=== PATIENT | male | born 1965 | race Caucasian/White ===

== ENCOUNTER 2025-01-02 12:34 | Inpatient (IN) ==
[2025-01-02 13:25] LABS: Basophils #(Absolute) Auto 0.0 (0.0-0.1); Basophils%(Percent) Auto 0.2 (0.0-1.3); Eosinophils#(Absolute)Auto 0.0 (0.0-0.3); Eosinophils%(Percent) Auto 0.2 % (0.0-4.0); Granulocytes % - Auto 82.7 % (49.1-73.1); Granulocytes#(Absolute)- Auto 9.1 (2.0-6.2); Hematocrit 53.8 % (41.3-50.1); Mean Corpuscular Volume 89.7 fl (81.9-96.5); Monocytes #(Absolute)- Auto 1.1 (0.2-0.8); Monocytes %(Percent)- Auto 10.0 % (4.5-10.7); Platelet Count 343 K/uL (142-355); White Blood Count 10.9 K/uL (3.7-9.6)
[2025-01-02] MEDS: 0.9 % SODIUM CHLORIDE 1000 ML 1,000 ML IV ONE ×4 (13:33→16:52)
[2025-01-02 13:36] LABS: Carbon Dioxide 20.0 mmol/L (21-32); Glucose 227.0 mg/dL (70-110); Potassium 4.5 mmol/L (3.6-5.2); Sodium 130.0 mmol/L (136-145)
[2025-01-02 14:07] LABS: PH BODY FLUID EXCP BLOOD 6.0 (5 - 9)
[2025-01-02] MEDS ORDERED: VANCOMYCIN HCL 1,000 MG in 0.9 % SODIUM CHLORIDE 250 ML IV SCH (15:15)
[2025-01-02] MEDS: PIPERACILLIN/TAZOBACTAM 3.375 3.375 GM in 0.9 % SODIUM CHLORIDE MB+ 100 ML IV ONE (15:16)
[2025-01-02] MEDS ORDERED: PIPERACILLIN SODIUM/TAZOBACTAM 3.375 GM VIAL IV ONE (15:16)
[2025-01-02] MEDS ORDERED: 0.9 % SODIUM CHLORIDE MB+ 100 ML IV ONE (15:16)
[2025-01-02] MEDS ORDERED: 0.9 % SODIUM CHLORIDE 1000 ML 1,000 ML IV ONE (16:45)
[2025-01-02] MEDS ORDERED: 0.9 % SODIUM CHLORIDE 250 ML IV ONE ×2 (17:05→18:58)
[2025-01-02] MEDS ORDERED: VANCOMYCIN HCL 1,000 MG VIAL IV ONE (17:05)
[2025-01-02] MEDS ORDERED: AZITHROMYCIN 500 MG VIAL ONE (18:58)
[2025-01-02] MEDS: AZITHROMYCIN 500 MG 500 MG in 0.9 % SODIUM CHLORIDE 250 ML IV ONE (18:59)
--- NOTE | 2025-01-02 20:22 | Emergency Department Note ---
HPI - Altered Mental Status General Chief Complaint: Altered Mental Status Stated Complaint: AMS Time Seen by Provider: 01/02/25 12:36 Source: family, medical record, EMS and other (nursing staff) Source comment: not sure what is unanswered Mode of arrival: ambulance Limitations: altered mental status History of Present Illness HPI narrative: 59-year-old male patient presents conscious however confused. states that this has been going on for the past 2 days. States that she noticed it yesterday after patient came home from having a liver biopsy. Patient has metastatic lung cancer and has been seen in the ER 3 times in the past week 4 times in the past month. states that the patient is deteriorating quickly. States that he has had gurgling respirations for the past 2 days that is worse in normal with his lung cancer.Son states that this is the third time the patient has had lung cancer MD complaint: altered mental status, confusion and weakness Onset (ago): day(s) (2) Time: 08:00 (on 01/01/25) Timing confirmed by: spouse Severity: mild Consistency of symptoms: getting Worse Context: cancer and liver disease Associated symptoms: denies other symptoms Related Data Home Medications Medication Instructions Recorded Confirmed aspirin 81 mg tablet,delayed 81 mg PO DAILY 01/02/25 0 01/02/25 release calcium phosphate,dibasic 77 1 tab PO DAILY 01/02/25 0 01/02/25 mg-vitamin D3 400 unit tablet celecoxib 400 mg capsule 400 mg PO DAILY 01/02/25 doxazosin 8 mg tablet 8 mg PO DAILY 01/02/2501/02 empagliflozin 25 mg tablet 25 mg PO DAILY 01/02/25 (Jardiance) ferrous sulfate 325 mg (65 mg 325 mg PO DAILY 01/02/25 01/02/25 iron) tablet (FeroSul) folic acid 1 mg tablet 1 mg PO DAILY 01/02/2501/02 furosemide 20 mg tablet 20 mg PO Q12H 01/02/2501/02 gabapentin 400 mg capsule 800 mg PO TID 01/02/2501/02 metformin 1,000 mg tablet 1,000 mg PO BID 01/02/25 metformin 500 mg tablet 500 mg PO DAILY 01/02/25 methocarbamol 750 mg tablet 750 mg PO BID 01/02/25 pilocarpine HCl 5 mg tablet 5 mg PO TID 01/02/2501/02 potassium chloride 10 mEq 10 meq PO DAILY 01/02/25 tablet,extended release quetiapine 25 mg tablet 50 mg PO BEDTIME 01/02/25 ropinirole 4 mg tablet 4 mg PO BID 01/02/25 5 simvastatin 20 mg tablet 20 mg PO BEDTIME 01/02/25 spironolactone 25 mg tablet 25 mg PO TID 01/02/2512/07 thiamine HCl (vitamin B1) 100 mg 100 mg PO DAILY 01/0201/02/25 capsule Previous Rx's Medication Instructions Recorded magnesium citrate 150 ml PO DAILY PRN constipa tion 12/31/24 #296 mL Allergies Allergy/AdvReac Type Severity Reaction Status Date / Time No Known Drug Allergies Allergy Verified 01/02/25 12:46 Review of Systems Status of ROS 10 or more systems reviewed and unremark able except as noted in history and below Cardiovascular Reports: other (tachycardia) Respiratory Reports: shortness of breath, cough and other (rales) [facility] Medical History (Updated 01/04/25 @ 13:51 by Lev Tan NP) Tachycardia Atrial fibrillation BPH (benign prostatic hyperplasia) Spinal cord stimulator status Port-A-Cath in place COPD (chronic obstructive pulmonary disease) Diabetes Hx of cancer of lung HTN (hypertension) Surgical History History of prostate surgery History of total right hip replacement History of total left hip arthroplasty H/O cardiac radiofrequency ablation Social History Smoking status: never smoker Within the past year, how often did you have six or more drinks on one occasion: never Highest level of school completed/degree received: decline to answer Exam Constitutional: abnormal general appearance (chronically ill), distress noted (moderate) and average body habitus Vital Signs - 24 hr 01/02/25 12:34 01/02/25 12:35 01/02/25 13:00 Temperature 97.6 F Pulse Rate 64 100 H Respiratory Rate 20 18 Blood Pressure 135/88 138/75 Pulse Oximetry 97 91 L 93 L Oxygen Delivery Me thod Nasal Cannula Room Air Nasal Cannula Oxygen Flow Rate 2 2 01/02/25 13:30 01/02/25 14:00 01/02/25 14:30 Temperature Pulse Rate 109 H 105 H 101 H Respiratory Rate 36 H 34 H 31 H Blood Pressure 102/75 116/78 106/77 Pulse Oximetry 97 97 95 Oxygen Delivery Me thod Nasal Cannula Nasal Cannula Nasal Cannula Oxygen Flow Rate 2 2 2 01/02/25 15:30 01/02/25 16:01 01/02/25 16:30 Temperature Pulse Rate 93 H 96 H 95 H Respiratory Rate 25 H 25 H 25 H Blood Pressure 97/69 135/78 130/80 Pulse Oximetry 95 95 95 Oxygen Delivery Me thod Nasal Cannula Nasal Cannula Nasal Cannula Oxygen Flow Rate 4 4 4 01/02/25 17:00 01/02/25 17:30 01/02/25 18:00 Temperature Pulse Rate 97 H 95 H 93 H Respiratory Rate 25 H 25 H 25 H Blood Pressure 114/71 114/66 111/61 Pulse Oximetry 95 95 95 Oxygen Delivery Me thod Nasal Cannula Nasal Cannula Nasal Cannula Oxygen Flow Rate 4 4 4 01/02/25 18:31 01/02/25 19:00 Temperature Pulse Rate 92 H 93 H Respiratory Rate 25 H 25 H Blood Pressure 96/57 108/66 Pulse Oximetry 95 95 Oxygen Delivery Me thod Nasal Cannula Nasal Cannula Oxygen Flow Rate 4 4 HENMT: normocephalic and head/scalp atraumatic Eyes: PERRL and EOMs intact bilaterally Neck/C-Spine: visual inspection normal and trachea midline Lymph: no lymphadenopathy noted and no lymphedema noted Chest: inspection of chest normal and palpation of chest normal Respiratory: breath sounds equal bilaterally (rhonchi bilaterally), abnormal respiratory effort other (increased work of breathing), auscultation abnormal other (rales) and rales noted (base) Cardiovascular: heart rate abnormal (tachycardic) and regular rhythm noted Neurology: GCS calculation - Eye opening: Spontaneous Verbal response: Confused Motor response: Obey commands Kwasi Coma Scale total score: 14 Skin: skin color normal Course Course Hospital Course: Patient was evaluated in the ER found to be in mild acute distress. Breath so unds are rhonchi bilaterally. Patient afebrile during evaluation. Patient is tachycardic and tachypneic. Patient's blood pressure slightly decreased. Patient has been seen in the ER 3 times in the past week 4 times in the past month. Patient appears to be declining rapidly. Nursing staff states that they saw him on his last visit and that this is a mental status. does state that this has been going on for the past 2 days progressively getting worse. States the patient does not want to eat or drink as he normally should. Head CT shows no acute findings. Patient is confused and is not following all commands however when he does follow commands he is able to move all extremities without any deficits. Patient appears to have equal bilateral heel compressor. No drift or droop is noted. WBC is slightly elevated at 10.1 however lactic acid is 4.0. Patient was given normal saline 2 L IV. Fluid bolus of 30 cc/KG Was 2700 cc however patient is responding nicely after 2 L. Patient's BMP comes back elevated greater than 500. Patient was continued on normal saline at 150ml/hour. Patient was given vancomycin 1g IV and zosyn 3.375g as no initial source of infection was found. CT chest ab and pelvis was done that shows pneumonia. I have consulted Dr Peter Davila, attending, in regards to further treatment as patient has had two broad spectrum antibiotics. Pt was also given azithromycin 500mg IV and will continue on IV rocephine 1 g and IV azithromycine 500mg daily. I have discussed with And she will present the desire to admit patient for further evaluation and treatment of pneumonia And sepsis. They are all in agreement. I further discussed with the and children any advanced directives. At this time patient will remain a full code. Vital Signs Vital signs: Vital Signs Pulse Oximetry 97 01/02/25 12:34 Oxygen Delivery Method Nasal Cannula 01/02/25 12:34 Oxygen Flow Rate 2 01/02/25 12:34 Temperature 98.3 F 01/05/25 04:00 Pulse Rate 101 H 01/05/25 04:00 Respiratory Rate 20 01/05/25 04:00 Blood Pressure 135/83 01/05/25 04:00 Pulse Oximetry 93 L 01/05/25 04:00 Oxygen Delivery Method Nasal Cannula 01/05/25 04:00 Oxygen Flow Rate 2.5 01/05/25 04:00 Fraction of Inspired Oxygen 32 01/04/25 20:47 MDM - Altered Mental Status Differential Diagnosis Differential diagnosis: Likely altered mental status, delirium, hypoglycemia, hyponatremia, subarachnoid hemorrhage, sepsis and OTHER (pneumonia) Medical Records Attestation: I reviewed the patient's medical records. Lab Data Attestation: I reviewed the patient's lab results. Labs: Lab Results 01/02/25 01/02/25 01/02/25 Range/Units 12:45 13:00 13:53 WBC 10.9 H (3.7-9.6) K/uL RBC 6.0 H (4.40-5.80) M/uL Hgb 17.8 H (14.0-17.4) gm/dL Hct 53.8 H (41.3-50.1) % MCV 89.7 (81.9-96.5) fl MCH 29.7 (27.6-33.7) pg MCHC 33.1 (33.0-35.7) g/dl RDW 16.5 H (11.0-14.8) % Plt Count 343 (142-355) K/uL MPV 8.4 (6.0-10.4) fl Gran % 82.7 H (49.1-73.1) % Lymph % (Auto) 6.9 L (17.6-39.05) % Esmeralda % (Auto) 10.0 (4.5-10.7) % Eos % (Auto) 0.2 (0.0-4.0) % Baso % (Auto) 0.2 (0.0-1.3) Lymph # (Auto) 0.8 (0.8-2.9) Esmeralda # (Auto) 1.1 H (0.2-0.8) Eos # (Auto) 0.0 (0.0-0.3) Baso # (Auto) 0.0 (0.0-0.1) Absolute Gran (auto) 9.1 H (2.0-6.2) Sodium 130 L (136-145) mmol/L Potassium 4.5 (3.6-5.2) mmol/L Chloride 94.0 L (98-107) mmol/L Carbon Dioxide 20 L (21-32) mmol/L Anion Gap 16.0 H (4-14) mEq/L BUN 41 H (7-18) mg/dL Creatinine 1.3 (0.6-1.3) mg/dL Estimated GFR 62.5 (>59.9) Glucose 227 H (70-110) mg/dL Lactic Acid 4.0 H (0.27-1.43) mmol/L Calcium 14.6 H* (8.5-10.1) mg/dL Magnesium 2.3 (1.8-2.4) mg/dL Total Bilirubin 1.00 (0.0-1.0) mg/dL AST 74 H (15-37) U/L ALT 37 (30-65) U/L Alkaline Phosphatase 184 H (50-136) U/L B-Natriuretic Peptide (0-100) pg/mL Total Protein 7.8 (6.4-8.2) g/dL Albumin 2.2 L (3.4-5.0) g/dL Procalcitonin TNP Urine Color Yellow (STRAW/YELL.) Urine Appearance Clear (CLEAR) Ur Specific [place] 1.025 (1.001-1.035) Urine Protein Negative (NEGATIVE) Urine Glucose (UA) Trace (NORMAL) Urine Ketones Small (NEGATIVE) Urine Occult Blood Negative (NEG - TRACE) Urine Nitrite Negative (NEGATIVE) Urine Bilirubin Negative (NEGATIVE) Urine Urobilinogen Normal (NORMAL) Ur Leukocyte Esterase Negative (NEGATIVE) Fluid pH 6.0 (5 - 9) COVID-19 (DANA) Not detected (Not Detectd) Influenza Type A Ag Negative (Negative) Influenza Type B Ag Negative (Negative) 01/02/25 01/02/25 Range/Units 15:34 20:05 WBC (3.7-9.6) K/uL RBC (4.40-5.80) M/uL Hgb (14.0-17.4) gm/dL Hct (41.3-50.1) % MCV (81.9-96.5) fl MCH (27.6-33.7) pg MCHC (33.0-35.7) g/dl RDW (11.0-14.8) % Plt Count (142-355) K/uL MPV (6.0-10.4) fl Gran % (49.1-73.1) % Lymph % (Auto) (17.6-39.05) % Esmeralda % (Auto) (4.5-10.7) % Eos % (Auto) (0.0-4.0) % Baso % (Auto) (0.0-1.3) Lymph # (Auto) (0.8-2.9) Esmeralda # (Auto) (0.2-0.8) Eos # (Auto) (0.0-0.3) Baso # (Auto) (0.0-0.1) Absolute Gran (auto) (2.0-6.2) Sodium (136-145) mmol/L Potassium (3.6-5.2) mmol/L Chloride (98-107) mmol/L Carbon Dioxide (21-32) mmol/L Anion Gap (4-14) mEq/L BUN (7-18) mg/dL Creatinine (0.6-1.3) mg/dL Estimated GFR (>59.9) Glucose (70-110) mg/dL Lactic Acid 2.5 H (0.27-1.43) mmol/L Calcium (8.5-10.1) mg/dL Magnesium (1.8-2.4) mg/dL Total Bilirubin (0.0-1.0) mg/dL AST (15-37) U/L ALT (30-65) U/L Alkaline Phosphatase (50-136) U/L B-Natriuretic Peptide 507.0 H (0-100) pg/mL Total Protein (6.4-8.2) g/dL Albumin (3.4-5.0) g/dL Procalcitonin Urine Color (STRAW/YELL.) Urine Appearance (CLEAR) Ur Specific [place] (1.001-1.035) Urine Protein (NEGATIVE) Urine Glucose (UA) (NORMAL) Urine Ketones (NEGATIVE) Urine Occult Blood (NEG - TRACE) Urine Nitrite (NEGATIVE) Urine Bilirubin (NEGATIVE) Urine Urobilinogen (NORMAL) Ur Leukocyte Esterase (NEGATIVE) Fluid pH (5 - 9) COVID-19 (DANA) (Not Detectd) Influenza Type A Ag (Negative) Influenza Type B Ag (Negative) ABG Data Attestation: I have reviewed the pertinent ABG results. Imaging Data Imaging ordered: Chest x-ray, CT scan - abdomen, CT scan - chest and CT scan - pelvis Radiologist's impression: Patient: July Trejo Nico Patient: José Antonio Benites MR#: [id number] : 1965 Acct:[id number] Age/Sex: 59 / M ADM Date: 01/02/25 Loc: ED Attending Dr: Ordering Physician: Pablito Ahumada NP Date of Service: 01/02/25 Procedure(s): CT Chest/Abd/Pelvis w Accession Number(s): [id number] cc: Pablito Ahumada NP; Melissa Youngblood M.D.~ EXAM: CT CHEST/ABD/PELVIS W HISTORY: Sepsis COMPARISON: CT of the abdomen and pelvis December 27, 2024 TECHNIQUE: CT of the chest, abdomen and pelvis with intravenous contrast FINDINGS: CT chest: The thoracic aorta tapers normally with multifocal atherosclerotic calcifications. Coronary atherosclerotic calcifications are noted. No pericardial effusion. No mediastinal lymphadenopathy. Lung windows demonstrate bilateral emphysematous change. There is a central venous port present on the right. There is left upper lobe lung mass spanning 3.6 cm with metallic density suggesting treatment marker. There is airspace opacity in the left upper lobe with air bronchograms consistent with focal pneumonia. There is an 8 mm noncalcified nodule in the lateral left lower lobe worrisome for metastatic focus. There is a dorsal column stimulator present. CT abdomen and pelvis: The abdominal aorta tapers normally with extensive, multifocal atherosclerotic plaque. Some motion artifact reduces sensitivity. No liver mass. Stones are present in the gallbladder which does not appear inflamed. 2 cm right adrenal nodule. 2.7 cm left adrenal nodule. These adrenal nodules are nonspecific. 5 mm nonobstructing right nephrolithiasis. No left renal stones. The distal ureters and pelvis are obscured secondary to severe metallic streak artifact from bilateral metallic hip arthroplasties. Normal spleen contours. The pancreas is noninflamed. The stomach is not obstructed. The normal appendix is noted. No pelvic free fluid. The small bowel is not obstructed. No free air. There is a fracture of the L3 vertebral body which is similar to the recent comparison study without reaching retropulsion. There is lucency in the T8 vertebral body which is suspicious for possible metastatic activity. IMPRESSION: CT chest: Left upper lobe lung mass spanning 3.6 cm worrisome for lung malignancy. Left upper lobe pneumonia. 8 mm noncalcified nodule lateral left lower lobe worrisome for metastatic focus. CT abdomen and pelvis: Cholelithiasis. Bilateral adrenal nodules are nonspecific and metastatic nodularity can not be excluded. 5 mm nonobstructing right nephrolithiasis. Suspicious appearance of the T8 vertebral body possibly metastatic in etiology. All CT scans at this facility use dose modulation, iterative reconstruction, and/or weight based dosing when appropriate to reduce radiation dose to as low as reasonably achievable. THIS IS AN ELECTRONICALLY VERIFIED FINAL REPORT 01/02/2025 5:53 PM - Electronically signed by Ronal Augustin MD ECG Data Attestation: I have reviewed the pertinent ECG results. Critical Care Time Critical Care Time Critical Care Time: Yes Total Critical Care Time: 60 Attestation: Critical care time of 60 minutes Discharge Plan Discharge Patient Disposition: Admitted As Observation Condition: Improved Clinical Impression: Sepsis, Pneumonia, Hypercalcemia Interventions: ED Discharge Assessment Last Done: 01/02/25 20:55 ED Discharge Vital Sign Last Done: 01/02/25 20:56 Emergency Department Charge Sheet Last Done: 01/02/25 20:59 Time of Disposition: 20:13 Discharge Date/Time: 01/02/25 21:30
[2025-01-02] MEDS ORDERED: MAGNESIUM CITRATE 296 ML SOLUTION PO PRN (21:38)
[2025-01-02] MEDS: QUETIAPINE FUMARATE 25 MG TABLET PO SCH (22:04)
[2025-01-02] MEDS: METHOCARBAMOL 750 MG PO SCH (22:04)
[2025-01-02] MEDS: ROPINIROLE HCL 2 MG TABLET PO SCH (22:04)
[2025-01-02] MEDS: GABAPENTIN 400 MG CAPSULE PO SCH (22:04)
[2025-01-02] MEDS: SIMVASTATIN 10 MG TABLET PO SCH (22:04)
[2025-01-02] MEDS: METFORMIN HCL 500 MG TABLET PO SCH (22:04)
[2025-01-02] MEDS: PILOCARPINE HCL 5 MG PO SCH (22:05)
[2025-01-02] MEDS: 0.9 % SODIUM CHLORIDE 1000 ML 1,000 ML IV SCH (22:31)
[2025-01-02] MEDS ORDERED: KETOROLAC 30 MG/ML INJ VIAL IVP PRN (22:36)
[2025-01-02] MEDS: MORPHINE SULFATE 4 MG/ML CARTRIDGE IVP PRN (22:59)
[2025-01-02] MEDS: ONDANSETRON HCL/PF 4 MG/2 ML VIAL IVP PRN (22:59)
[2025-01-03] MEDS: ACETAMINOPHEN 1000 MG/100 ML 1,000 MG/100 ML IV.SOLN IV PRN (04:14)
[2025-01-03 05:32] LABS: Basophils #(Absolute) Auto 0.0 (0.0-0.1); Basophils%(Percent) Auto 0.2 (0.0-1.3); Eosinophils#(Absolute)Auto 0.0 (0.0-0.3); Eosinophils%(Percent) Auto 0.3 % (0.0-4.0); Granulocytes % - Auto 83.3 % (49.1-73.1); Granulocytes#(Absolute)- Auto 7.6 (2.0-6.2); Hematocrit 44.3 % (41.3-50.1); Mean Corpuscular Volume 89.3 fl (81.9-96.5); Monocytes #(Absolute)- Auto 1.0 (0.2-0.8); Monocytes %(Percent)- Auto 10.5 % (4.5-10.7); Platelet Count 286 K/uL (142-355); White Blood Count 9.1 K/uL (3.7-9.6)
[2025-01-03 06:10] LABS: Carbon Dioxide 24.0 mmol/L (21-32); Glucose 115.0 mg/dL (70-110); Potassium 3.8 mmol/L (3.6-5.2); Sodium 138.0 mmol/L (136-145)
[2025-01-03] MEDS: ASPIRIN 81 MG TABLET.DR PO SCH (08:59)
[2025-01-03] MEDS: TERAZOSIN HCL 2 MG CAPSULE PO SCH (09:00)
[2025-01-03] MEDS: CALCIUM PHOS DIBAS VITAMIN D3 PO SCH (09:00)
[2025-01-03] MEDS: CELECOXIB 100 MG CAPSULE PO SCH (09:00)
[2025-01-03] MEDS: THIAMINE MONONITRATE (VIT B1) 100 MG TABLET PO SCH (09:00)
[2025-01-03] MEDS: CEFTRIAXONE SODIUM 1 GM in 0.9 % SODIUM CHLORIDE MB+ 50 ML IV SCH (09:01)
[2025-01-03] MEDS: AZITHROMYCIN 500 MG 500 MG in 0.9 % SODIUM CHLORIDE 250 ML IV SCH (09:01)
[2025-01-03] MEDS: ALBUMIN HUMAN 25% 100 ML IV SCH (09:53)
--- NOTE | 2025-01-03 13:25 | History & Physical Report ---
H&P: HPI History of Present Illness Chief complaint: SEPSIS,PNEUMONIA Narrative: Very ill appearing 59 year old male who was brought into the ED with c/o AMS x 2 days, gurgling lung sounds x 2 days. He is s/p liver biopsy in [place], [place] 2 days ago for mass detected on prior ED visit here. He has history significant for lung cancer reportedly for about 4 or 5 years for which he has been undergoing chemo and at times had radiation. Recently in November [address] Asael Wong, Oncologist in [place], [place] and chemo was stopped at that time due to him being so sick and having a "lot going on". Prior to this he was on [id number] Deruxtecan protocol. According to the patient'spouse he has been undergoing regular PET imaging. Those records are not available to us now. In ER lactic 4.0, Calcium 14.6, Albumin 2.2, Sodium 130, WBC 10.9, hgb 17.8, hct 53.8, and platelets 343. Today Albumin 1.8, Calcium 13.1, Lactic 2.5. Patient was given Vanc and Zosyn IV in ED and then admitted and switched to Azithromycin and Recephin IV. Chest CT positive for findings suspicious for mets in lung, liver, adrenal glands, and T8 vertebral body. The patient's spouse has been providing total care for him at home but states she is unable to continue now that he cannot stand on his own and requires round the clock care. She has missed work for the past couple weeks due to providing this care. She wishes to have him admitted to the [facility] for ongoing care as she works here and will be able to continue her job and know he is taken care of. I have discussed end of life care and advanced directives with her and one of their sons that I was able to reach by phone. Spouse asked me to talk to them. At this time they wish to continue full code status but are considering best options for patient. Review of Systems Narrative Patient did not express any complaints but given AMS unable to assess [facility] Medical History (Updated 01/03/25 @ 13:47 by Karina Boothe NP) BPH (benign prostatic hyperplasia) Spinal cord stimulator status Port-A-Cath in place COPD (chronic obstructive pulmonary disease) Diabetes Hx of cancer of lung HTN (hypertension) Surgical History History of prostate surgery History of total right hip replacement History of total left hip arthroplasty H/O cardiac radiofrequency ablation Social History Smoking status: former smoker Within the past year, how often did you have six or more drinks on one occasion: never Highest level of school completed/degree received: decline to answer Meds Home Medications and Allergies Home Medications Medication Instructions Recorded Confirmed Type magnesium citrate 150 ml PO DAILY PRN constipa tion 12/31/24 01/02/25 Rx #296 mL aspirin 81 mg tablet,delayed 81 mg PO DAILY 01/02/25 0 01/02/25 History release calcium phosphate,dibasic 77 1 tab PO DAILY 01/02/25 0 01/02/25 History mg-vitamin D3 400 unit tablet celecoxib 400 mg capsule 400 mg PO DAILY 01/02/25 History doxazosin 8 mg tablet 8 mg PO DAILY 01/02/2501/02 History empagliflozin 25 mg tablet 25 mg PO DAILY 01/02/25 History (Jardiance) ferrous sulfate 325 mg (65 mg 325 mg PO DAILY 01/02/25 01/02/25 History iron) tablet (FeroSul) folic acid 1 mg tablet 1 mg PO DAILY 01/02/2501/02 History furosemide 20 mg tablet 20 mg PO Q12H 01/02/2501/02 History gabapentin 400 mg capsule 800 mg PO TID 01/02/2501/02 History metformin 1,000 mg tablet 1,000 mg PO BID 01/02/25 History metformin 500 mg tablet 500 mg PO DAILY 01/02/25 History methocarbamol 750 mg tablet 750 mg PO BID 01/02/25 History pilocarpine HCl 5 mg tablet 5 mg PO TID 01/02/2501/02 History potassium chloride 10 mEq 10 meq PO DAILY 01/02/25 History tablet,extended release quetiapine 25 mg tablet 50 mg PO BEDTIME 01/02/25 History ropinirole 4 mg tablet 4 mg PO BID 01/02/25 5 History simvastatin 20 mg tablet 20 mg PO BEDTIME 01/02/25 History spironolactone 25 mg tablet 25 mg PO TID 01/02/2512/07 History thiamine HCl (vitamin B1) 100 mg 100 mg PO DAILY 01/0201/02/25 History capsule Allergies Allergy/AdvReac Type Severity Reaction Status Date / Time No Known Drug Allergies Allergy Verified 01/02/25 12:46 Exam Constitutional: normal general appearance (ill appearing), no apparent distress, average body habitus, no limitations (weak and unable to walk or stand) and alert (awake and fidgeting, AMS) Vital Signs - 24 hr 01/02/25 13:30 01/02/25 14:00 01/02/25 14:30 Temperature Pulse Rate 109 H 105 H 101 H Pulse Rate [Bilate ral Radial] Pulse Rate [Right] Respiratory Rate 36 H 34 H 31 H Blood Pressure 102/75 116/78 106/77 Blood Pressure [Ri ght Arm] Pulse Oximetry 97 97 95 Oxygen Delivery Me thod Nasal Cannula Nasal Cannula Nasal Cannula Oxygen Flow Rate 2 2 2 01/02/25 15:30 01/02/25 16:01 01/02/25 16:30 Temperature Pulse Rate 93 H 96 H 95 H Pulse Rate [Bilate ral Radial] Pulse Rate [Right] Respiratory Rate 25 H 25 H 25 H Blood Pressure 97/69 135/78 130/80 Blood Pressure [Ri ght Arm] Pulse Oximetry 95 95 95 Oxygen Delivery Me thod Nasal Cannula Nasal Cannula Nasal Cannula Oxygen Flow Rate 4 4 4 01/02/25 17:00 01/02/25 17:30 01/02/25 18:00 Temperature Pulse Rate 97 H 95 H 93 H Pulse Rate [Bilate ral Radial] Pulse Rate [Right] Respiratory Rate 25 H 25 H 25 H Blood Pressure 114/71 114/66 111/61 Blood Pressure [Ri ght Arm] Pulse Oximetry 95 95 95 Oxygen Delivery Me thod Nasal Cannula Nasal Cannula Nasal Cannula Oxygen Flow Rate 4 4 4 01/02/25 18:31 01/02/25 19:00 01/02/25 19:30 Temperature Pulse Rate 92 H 93 H 94 H Pulse Rate [Bilate ral Radial] Pulse Rate [Right] Respiratory Rate 25 H 25 H 18 Blood Pressure 96/57 108/66 100/61 Blood Pressure [Ri ght Arm] Pulse Oximetry 95 95 96 Oxygen Delivery Me thod Nasal Cannula Nasal Cannula Nasal Cannula Oxygen Flow Rate 4 4 4 01/02/25 20:00 01/02/25 20:19 01/02/25 20:30 Temperature Pulse Rate 95 H 97 H 94 H Pulse Rate [Bilate ral Radial] Pulse Rate [Right] Respiratory Rate 22 21 23 Blood Pressure 108/71 115/58 110/68 Blood Pressure [Ri ght Arm] Pulse Oximetry 96 93 L 95 Oxygen Delivery Me thod Nasal Cannula Nasal Cannula Nasal Cannula Oxygen Flow Rate 4 4 4 01/02/25 20:51 01/02/25 20:51 01/02/25 20:56 Temperature 98.9 F 97.6 F Pulse Rate 93 H Pulse Rate [Bilate ral Radial] Pulse Rate [Right] 97 H Respiratory Rate 23 23 25 H Blood Pressure 108/66 Blood Pressure [Ri ght Arm] 115/58 Pulse Oximetry 94 L 94 L 95 Oxygen Delivery Me thod Nasal Cannula Nasal Cannula Oxygen Flow Rate 4 4 01/02/25 21:00 01/03/25 00:00 01/03/25 04:00 Temperature 96.4 F L 96.8 F L Pulse Rate 94 H Pulse Rate [Bilate ral Radial] 97 H Pulse Rate [Right] 97 H 88 Respiratory Rate 23 22 21 Blood Pressure 104/77 Blood Pressure [Ri ght Arm] 116/79 119/68 Pulse Oximetry 95 94 L 97 Oxygen Delivery Me thod Nasal Cannula Room Air Nasal Cannula Oxygen Flow Rate 4 4 01/03/25 07:58 01/03/25 12:00 Temperature 98.2 F 98.3 F Pulse Rate Pulse Rate [Bilate ral Radial] Pulse Rate [Right] 68 73 Respiratory Rate 20 20 Blood Pressure Blood Pressure [Ri ght Arm] 143/80 155/89 Pulse Oximetry 95 91 L Oxygen Delivery Me thod Nasal Cannula Nasal Cannula Oxygen Flow Rate 4 4 HENMT: normocephalic and head/scalp atraumatic Eyes: conjunctivae normal, no scleral icterus and no nystagmus pupils not equal Neck/C-Spine: visual inspection normal and trachea midline Chest: inspection of chest normal Respiratory: breath sounds equal bilaterally (rhonchi BLL, crackles BLL), no retractions and no use of accessory muscles Cardiovascular: normal heart rate noted and regular rhythm noted Gastrointestinal: abdomen abnormal to inspection, abdomen soft to palpation, nontender to palpation, nontender to percussion, nondistended (dullness to percussion), normoactive bowel sounds and no ascites Dullness to percussion Genitourinary: deferred Back/Pelvis: spine normal to inspection Extremities: normal to inspection, normal to palpation, no tenderness, full ROM and no joint enlargement Neurology: no fasciculations noted AMS Psychiatry: AMS Skin: skin color normal (pallor, dusky) Assessment and Plan Assessment and Plan (1) AMS (altered mental status): Code(s): R41.82 - Altered mental status, unspecified (2) Lung mass: Code(s): R91.8 - Other nonspecific abnormal finding of lung field (3) Adrenal mass: Code(s): E27.8 - Other specified disorders of adrenal gland (4) Lactic acidosis: Code(s): E87.20 - Acidosis, unspecified (5) Hypercalcemia of malignancy: Code(s): E83.52 - Hypercalcemia (6) Hypoalbuminemia due to protein-calorie malnutrition: Code(s): E88.09 - Other disorders of plasma-protein metabolism, not elsewhere classified; E46 - Unspecified protein-calorie malnutrition (7) D-dimer, elevated: Code(s): R79.89 - Other specified abnormal findings of blood chemistry (8) HTN (hypertension): Code(s): I10 - Essential (primary) hypertension (9) Diabetes: Code(s): E11.9 - Type 2 diabetes mellitus without complications (10) COPD (chronic obstructive pulmonary disease): Code(s): J44.9 - Chronic obstructive pulmonary disease, unspecified (11) Port-A-Cath in place: Code(s): Z95.828 - Presence of other vascular implants and grafts (12) Spinal cord stimulator status: Code(s): Z96.89 - Presence of other specified functional implants Plan CTA for PE pending to rule out Pulmonary Embolism Replete Albumin IV fluid rehydration Azithromycin and Rocephin IV Case Management Consult for [facility] Placement Repeat CBC, CMP, Lactic acid in am. Pain control NPO to avoid aspiration, may have occasional ice chips to wet mucous membranes Continue Advanced Directive/End of Life Care communication with spouse, children. Results Labs Labs: CBC 01/02/25 01/03/25 Range/Units 13:00 05:20 WBC 10.9 H 9.1 (3.7-9.6) K/uL RBC 6.0 H 5.0 (4.40-5.80) M/uL Hgb 17.8 H 14.8 (14.0-17.4) gm/dL Hct 53.8 H 44.3 (41.3-50.1) % Plt Count 343 286 (142-355) K/uL Gran % 82.7 H 83.3 H (49.1-73.1) % Lymph % (Auto) 6.9 L 5.7 L (17.6-39.05) % [place] % (Auto) 10.0 10.5 (4.5-10.7) % Eos % (Auto) 0.2 0.3 (0.0-4.0) % Baso % (Auto) 0.2 0.2 (0.0-1.3) Lymph # (Auto) 0.8 0.5 L (0.8-2.9) [place] # (Auto) 1.1 H 1.0 H (0.2-0.8) Eos # (Auto) 0.0 0.0 (0.0-0.3) Baso # (Auto) 0.0 0.0 (0.0-0.1) Absolute Gran (auto) 9.1 H 7.6 H (2.0-6.2) CMP 01/02/25 01/03/25 12:45 05:20 Sodium 130 L 138 Potassium 4.5 3.8 Chloride 94.0 L 104.0 Carbon Dioxide 20 L 24 BUN 41 H 38 H Creatinine 1.3 1.2 Glucose 227 H 115 H Calcium 14.6 H* 13.1 H* Liver Function 01/02/25 01/03/25 Range/Units 12:45 05:20 Total Bilirubin 1.00 0.63 (0.0-1.0) mg/dL AST 74 H 83 H (15-37) U/L ALT 37 34 (30-65) U/L Alkaline Phosphatase 184 H 152 H (50-136) U/L Albumin 2.2 L 1.8 L (3.4-5.0) g/dL Urine 01/02/25 13:53 Urine Color Yellow Urine Appearance Clear Ur Specific [place] 1.025 Urine Protein Negative Urine Glucose (UA) Trace Additional Findings Additional findings: CTA for PE pending
--- NOTE | 2025-01-03 14:52 | History & Physical Report ---
H&P: HPI History of Present Illness Chief complaint: SEPSIS,PNEUMONIA Review of Systems Narrative Patient did not express any complaints but given AMS unable to assess Status of ROS 10 or more systems reviewed and unremark able except as noted in history and below Cardiovascular Reports: shortness of breath with exertion and other (tachycardia) Respiratory Reports: shortness of breath, cough and other (rales) PFSH PFS Medical History (Updated 01/03/25 @ 13:47 by Karina Boothe NP) BPH (benign prostatic hyperplasia) Spinal cord stimulator status Port-A-Cath in place COPD (chronic obstructive pulmonary disease) Diabetes Hx of cancer of lung HTN (hypertension) Surgical History History of prostate surgery History of total right hip replacement History of total left hip arthroplasty H/O cardiac radiofrequency ablation Social History Smoking status: former smoker Within the past year, how often did you have six or more drinks on one occasion: never Highest level of school completed/degree received: decline to answer Meds Home Medications and Allergies Home Medications Medication Instructions Recorded Confirmed Type magnesium citrate 150 ml PO DAILY PRN constipa tion 12/31/24 01/02/25 Rx #296 mL aspirin 81 mg tablet,delayed 81 mg PO DAILY 01/02/25 0 01/02/25 History release calcium phosphate,dibasic 77 1 tab PO DAILY 01/02/25 0 01/02/25 History mg-vitamin D3 400 unit tablet celecoxib 400 mg capsule 400 mg PO DAILY 01/02/25 History doxazosin 8 mg tablet 8 mg PO DAILY 01/02/2501/02 History empagliflozin 25 mg tablet 25 mg PO DAILY 01/02/25 History (Jardiance) ferrous sulfate 325 mg (65 mg 325 mg PO DAILY 01/02/25 01/02/25 History iron) tablet (FeroSul) folic acid 1 mg tablet 1 mg PO DAILY 01/02/2501/02 History furosemide 20 mg tablet 20 mg PO Q12H 01/02/2501/02 History gabapentin 400 mg capsule 800 mg PO TID 01/02/2501/02 History metformin 1,000 mg tablet 1,000 mg PO BID 01/02/25 History metformin 500 mg tablet 500 mg PO DAILY 01/02/25 History methocarbamol 750 mg tablet 750 mg PO BID 01/02/25 History pilocarpine HCl 5 mg tablet 5 mg PO TID 01/02/2501/02 History potassium chloride 10 mEq 10 meq PO DAILY 01/02/25 History tablet,extended release quetiapine 25 mg tablet 50 mg PO BEDTIME 01/02/25 History ropinirole 4 mg tablet 4 mg PO BID 01/02/25 5 History simvastatin 20 mg tablet 20 mg PO BEDTIME 01/02/25 History spironolactone 25 mg tablet 25 mg PO TID 01/02/2512/07 History thiamine HCl (vitamin B1) 100 mg 100 mg PO DAILY 01/0201/02/25 History capsule Allergies Allergy/AdvReac Type Severity Reaction Status Date / Time No Known Drug Allergies Allergy Verified 01/02/25 12:46 Exam Constitutional: Vital Signs - 24 hr 01/02/25 14:00 01/02/25 14:30 01/02/25 15:30 Temperature Pulse Rate 105 H 101 H 93 H Pulse Rate [Bilate ral Radial] Pulse Rate [Right] Respiratory Rate 34 H 31 H 25 H Blood Pressure 116/78 106/77 97/69 Blood Pressure [Ri ght Arm] Pulse Oximetry 97 95 95 Oxygen Delivery Me thod Nasal Cannula Nasal Cannula Nasal Cannula Oxygen Flow Rate 2 2 4 01/02/25 16:01 01/02/25 16:30 01/02/25 17:00 Temperature Pulse Rate 96 H 95 H 97 H Pulse Rate [Bilate ral Radial] Pulse Rate [Right] Respiratory Rate 25 H 25 H 25 H Blood Pressure 135/78 130/80 114/71 Blood Pressure [Ri ght Arm] Pulse Oximetry 95 95 95 Oxygen Delivery Me thod Nasal Cannula Nasal Cannula Nasal Cannula Oxygen Flow Rate 4 4 4 01/02/25 17:30 01/02/25 18:00 01/02/25 18:31 Temperature Pulse Rate 95 H 93 H 92 H Pulse Rate [Bilate ral Radial] Pulse Rate [Right] Respiratory Rate 25 H 25 H 25 H Blood Pressure 114/66 111/61 96/57 Blood Pressure [Ri ght Arm] Pulse Oximetry 95 95 95 Oxygen Delivery Me thod Nasal Cannula Nasal Cannula Nasal Cannula Oxygen Flow Rate 4 4 4 01/02/25 19:00 01/02/25 19:30 01/02/25 20:00 Temperature Pulse Rate 93 H 94 H 95 H Pulse Rate [Bilate ral Radial] Pulse Rate [Right] Respiratory Rate 25 H 18 22 Blood Pressure 108/66 100/61 108/71 Blood Pressure [Ri ght Arm] Pulse Oximetry 95 96 96 Oxygen Delivery Me thod Nasal Cannula Nasal Cannula Nasal Cannula Oxygen Flow Rate 4 4 4 01/02/25 20:19 01/02/25 20:30 01/02/25 20:51 Temperature Pulse Rate 97 H 94 H Pulse Rate [Bilate ral Radial] Pulse Rate [Right] Respiratory Rate 21 23 23 Blood Pressure 115/58 110/68 Blood Pressure [Ri ght Arm] Pulse Oximetry 93 L 95 94 L Oxygen Delivery Me thod Nasal Cannula Nasal Cannula Nasal Cannula Oxygen Flow Rate 4 4 4 01/02/25 20:51 01/02/25 20:56 01/02/25 21:00 Temperature 98.9 F 97.6 F Pulse Rate 93 H 94 H Pulse Rate [Bilate ral Radial] Pulse Rate [Right] 97 H Respiratory Rate 23 25 H 23 Blood Pressure 108/66 104/77 Blood Pressure [Ri ght Arm] 115/58 Pulse Oximetry 94 L 95 95 Oxygen Delivery Me thod Nasal Cannula Nasal Cannula Oxygen Flow Rate 4 4 01/03/25 00:00 01/03/25 04:00 01/03/25 07:58 Temperature 96.4 F L 96.8 F L 98.2 F Pulse Rate Pulse Rate [Bilate ral Radial] 97 H Pulse Rate [Right] 97 H 88 68 Respiratory Rate 22 21 20 Blood Pressure Blood Pressure [Ri ght Arm] 116/79 119/68 143/80 Pulse Oximetry 94 L 97 95 Oxygen Delivery Me thod Room Air Nasal Cannula Nasal Cannula Oxygen Flow Rate 4 4 01/03/25 12:00 Temperature 98.3 F Pulse Rate Pulse Rate [Bilate ral Radial] Pulse Rate [Right] 73 Respiratory Rate 20 Blood Pressure Blood Pressure [Ri ght Arm] 155/89 Pulse Oximetry 91 L Oxygen Delivery Me thod Nasal Cannula Oxygen Flow Rate 4 Assessment and Plan Assessment and Plan (1) AMS (altered mental status): Code(s): R41.82 - Altered mental status, unspecified (2) Lung mass: Code(s): R91.8 - Other nonspecific abnormal finding of lung field (3) Adrenal mass: Code(s): E27.8 - Other specified disorders of adrenal gland (4) Lactic acidosis: Code(s): E87.20 - Acidosis, unspecified (5) Hypercalcemia of malignancy: Code(s): E83.52 - Hypercalcemia (6) Hypoalbuminemia due to protein-calorie malnutrition: Code(s): E88.09 - Other disorders of plasma-protein metabolism, not elsewhere classified; E46 - Unspecified protein-calorie malnutrition (7) D-dimer, elevated: Code(s): R79.89 - Other specified abnormal findings of blood chemistry (8) HTN (hypertension): Code(s): I10 - Essential (primary) hypertension (9) Diabetes: Code(s): E11.9 - Type 2 diabetes mellitus without complications (10) COPD (chronic obstructive pulmonary disease): Code(s): J44.9 - Chronic obstructive pulmonary disease, unspecified (11) Port-A-Cath in place: Code(s): Z95.828 - Presence of other vascular implants and grafts (12) Spinal cord stimulator status: Code(s): Z96.89 - Presence of other specified functional implants Plan CTA for PE pending to rule out Pulmonary Embolism Replete Albumin IV fluid rehydration Azithromycin and Rocephin IV Case Management Consult for [facility] Placement Repeat CBC, CMP, Lactic acid in am. Pain control NPO to avoid aspiration, may have occasional ice chips to wet mucous membranes Continue Advanced Directive/End of Life Care communication with spouse, children. Results Labs Labs: CBC 01/03/25 Range/Units 05:20 WBC 9.1 (3.7-9.6) K/uL RBC 5.0 (4.40-5.80) M/uL Hgb 14.8 (14.0-17.4) gm/dL Hct 44.3 (41.3-50.1) % Plt Count 286 (142-355) K/uL Gran % 83.3 H (49.1-73.1) % Lymph % (Auto) 5.7 L (17.6-39.05) % [place] % (Auto) 10.5 (4.5-10.7) % Eos % (Auto) 0.3 (0.0-4.0) % Baso % (Auto) 0.2 (0.0-1.3) Lymph # (Auto) 0.5 L (0.8-2.9) [place] # (Auto) 1.0 H (0.2-0.8) Eos # (Auto) 0.0 (0.0-0.3) Baso # (Auto) 0.0 (0.0-0.1) Absolute Gran (auto) 7.6 H (2.0-6.2) CMP 01/02/25 01/03/25 12:45 05:20 Sodium 130 L 138 Potassium 4.5 3.8 Chloride 94.0 L 104.0 Carbon Dioxide 20 L 24 BUN 41 H 38 H Creatinine 1.3 1.2 Glucose 227 H 115 H Calcium 14.6 H* 13.1 H* Liver Function 01/02/25 01/03/25 Range/Units 12:45 05:20 Total Bilirubin 1.00 0.63 (0.0-1.0) mg/dL AST 74 H 83 H (15-37) U/L ALT 37 34 (30-65) U/L Alkaline Phosphatase 184 H 152 H (50-136) U/L Albumin 2.2 L 1.8 L (3.4-5.0) g/dL Urine 01/02/25 13:53 Urine Color Yellow Urine Appearance Clear Ur Specific [place] 1.025 Urine Protein Negative Urine Glucose (UA) Trace
[2025-01-03] MEDS: MORPHINE SULFATE 4 MG/ML CARTRIDGE IVP PRN (21:28)
[2025-01-03] MEDS: FUROSEMIDE 20 MG/2 ML VIAL IV ONE (23:19)
[2025-01-04 07:53] LABS: Basophils #(Absolute) Auto 0.0 (0.0-0.1); Basophils%(Percent) Auto 0.3 (0.0-1.3); Eosinophils#(Absolute)Auto 0.1 (0.0-0.3); Eosinophils%(Percent) Auto 0.6 % (0.0-4.0); Granulocytes % - Auto 84.7 % (49.1-73.1); Granulocytes#(Absolute)- Auto 8.5 (2.0-6.2); Hematocrit 49.4 % (41.3-50.1); Mean Corpuscular Volume 88.7 fl (81.9-96.5); Monocytes #(Absolute)- Auto 0.8 (0.2-0.8); Monocytes %(Percent)- Auto 8.3 % (4.5-10.7); Platelet Count 341 K/uL (142-355); White Blood Count 10.0 K/uL (3.7-9.6)
[2025-01-04 08:28] LABS: Carbon Dioxide 23.0 mmol/L (21-32); Glucose 99.0 mg/dL (70-110); Potassium 3.1 mmol/L (3.6-5.2); Sodium 145.0 mmol/L (136-145)
[2025-01-04] MEDS: METOPROLOL TARTRATE 50 MG TABLET PO SCH (09:58)
[2025-01-04] MEDS: IPRATROPIUM/ALBUTEROL SULFATE 3 ML AMPUL.NEB INH SCH (11:14)
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
[2025-01-04] MEDS: METHYLPREDNISOLONE SOD SUCC/PF 40 MG/ML VIAL INJ SCH ×2 (12:58→20:14)
[2025-01-04] MEDS: POTASSIUM CHLORIDE 10 MEQ CAPSULE.ER PO ONE (12:58)
[2025-01-04] MEDS: ZOLEDRONIC ACID/MANNITOL-WATER 5 MG/100 ML PGGYBK.BTL IV ONE (13:02)
[2025-01-04] MEDS: PILOCARPINE HCL 5 MG PO SCH (16:46)
[2025-01-04] MEDS: METHOCARBAMOL 750 MG PO SCH (20:15)
[2025-01-04] MEDS: BUDESONIDE 0.5 MG/2 ML AMPUL.NEB INH SCH (20:46)
[2025-01-05 04:43] LABS: Basophils #(Absolute) Auto 0.0 (0.0-0.1); Basophils%(Percent) Auto 0.3 (0.0-1.3); Eosinophils#(Absolute)Auto 0.0 (0.0-0.3); Eosinophils%(Percent) Auto 0.1 % (0.0-4.0); Granulocytes % - Auto 91.6 % (49.1-73.1); Granulocytes#(Absolute)- Auto 8.2 (2.0-6.2); Hematocrit 46.6 % (41.3-50.1); Mean Corpuscular Volume 89.7 fl (81.9-96.5); Monocytes #(Absolute)- Auto 0.4 (0.2-0.8); Monocytes %(Percent)- Auto 4.2 % (4.5-10.7); Platelet Count 336 K/uL (142-355); White Blood Count 8.9 K/uL (3.7-9.6)
[2025-01-05 05:14] LABS: Carbon Dioxide 27.0 mmol/L (21-32); Glucose 261.0 mg/dL (70-110); Potassium 4.4 mmol/L (3.6-5.2); Sodium 149.0 mmol/L (136-145)
[2025-01-05] MEDS: AZITHROMYCIN 500 MG 500 MG in 0.9 % SODIUM CHLORIDE 250 ML IV SCH (11:04)
--- NOTE | 2025-01-05 14:05 | Progress Note ---
Exam 2 Exam: Obtunded, responding only with moaning and brief eye opening with deep sternal rub. Restless with uncoordinated arm movements. Appears to be transitioning, end of life in his disease process. Constitutional: abnormal general appearance (chronically ill), distress noted (moderate) and (respiratory), average body habitus and level of alertness abnormal (obtunded) Vital Signs - 24 hr 01/04/25 15:05 01/04/25 16:00 01/04/25 19:46 Temperature 98 F 98.3 F Pulse Rate Pulse Rate [Bilate ral Brachial] 99 H 92 H Pulse Rate [Right] Respiratory Rate 21 20 Blood Pressure Blood Pressure [Ri ght Arm] 138/68 136/78 Pulse Oximetry 92 L 92 L 93 L Oxygen Delivery Me thod Nasal Cannula Oxygen Flow Rate 3 Fraction of Inspir ed Oxygen 01/04/25 20:13 01/04/25 20:47 01/04/25 20:47 Temperature Pulse Rate 92 H Pulse Rate [Bilate ral Brachial] Pulse Rate [Right] Respiratory Rate Blood Pressure 136/78 Blood Pressure [Ri ght Arm] Pulse Oximetry 91 L 91 L Oxygen Delivery Me thod Nasal Cannula Oxygen Flow Rate 3 Fraction of Inspir ed Oxygen 32 01/05/25 00:00 01/05/25 00:13 01/05/25 04:00 Temperature 98.4 F 98.4 F 98.3 F Pulse Rate Pulse Rate [Bilate ral Brachial] 86 86 101 H Pulse Rate [Right] 20 L Respiratory Rate 20 20 Blood Pressure Blood Pressure [Ri ght Arm] 118/70 118/70 135/83 Pulse Oximetry 93 L 93 L 93 L Oxygen Delivery Me thod Nasal Cannula Nasal Cannula Oxygen Flow Rate 2.5 2.5 Fraction of Inspir ed Oxygen 01/05/25 07:40 01/05/25 08:00 01/05/25 12:00 Temperature 97.1 F L 97.6 F Pulse Rate Pulse Rate [Bilate ral Brachial] 115 H Pulse Rate [Right] 133 H Respiratory Rate 20 16 Blood Pressure Blood Pressure [Ri ght Arm] 114/63 147/86 Pulse Oximetry 94 L 94 L 89 L Oxygen Delivery Me thod Nasal Cannula Nasal Cannula Oxygen Flow Rate 2.5 3 Fraction of Inspir ed Oxygen 01/05/25 12:04 01/05/25 12:26 Temperature Pulse Rate 130 H Pulse Rate [Bilate ral Brachial] Pulse Rate [Right] Respiratory Rate Blood Pressure Blood Pressure [Ri ght Arm] Pulse Oximetry 94 L Oxygen Delivery Me thod Oxygen Flow Rate Fraction of Inspir ed Oxygen HENMT: normocephalic, head/scalp atraumatic, external ears normal and oral mucous membranes abnormal (dry) Eyes: Deferred Neck/C-Spine: trachea midline Chest: inspection of chest normal and palpation of chest normal Respiratory: breath sounds unequal, abnormal respiratory effort (labored), auscultation abnormal, wheezing noted (scattered wheezes), rales noted (throughout) and use of accessory muscles noted Cardiovascular: heart rate abnormal (tachycardic), no JVD and peripheral pulses 2+ throughout Gastrointestinal: distended and ascites noted Genitourinary: Deferred Back/Pelvis: Deferred Extremities: normal to inspection and normal to palpation Neurology: movement abnormality noted (myoclonus), speech abnormality noted and GCS calculation - Eye opening: To pressure Verbal response: Sounds Motor response: None Kwasi Coma Scale total score: 5 Psychiatry: Mental Status Exam documented within this Exam's Psych section mental status abnormal (obtunded), orientation abnormal, thought process normal, cooperative and psychomotor abnormality noted (restless) Skin: skin color abnormal Reports (flushed), jaundice noted and alopecia noted Image: Body (4 view): 1. Dressing in place from previous liver biopsy. Progress Note: Objective Labs Labs: CBC 01/05/25 Range/Units 04:28 WBC 8.9 (3.7-9.6) K/uL RBC 5.2 (4.40-5.80) M/uL Hgb 15.4 (14.0-17.4) gm/dL Hct 46.6 (41.3-50.1) % Plt Count 336 (142-355) K/uL Gran % 91.6 H (49.1-73.1) % Lymph % (Auto) 3.8 L (17.6-39.05) % Dane % (Auto) 4.2 L (4.5-10.7) % Eos % (Auto) 0.1 (0.0-4.0) % Baso % (Auto) 0.3 (0.0-1.3) Lymph # (Auto) 0.3 L (0.8-2.9) Dane # (Auto) 0.4 (0.2-0.8) Eos # (Auto) 0.0 (0.0-0.3) Baso # (Auto) 0.0 (0.0-0.1) Absolute Gran (auto) 8.2 H (2.0-6.2) CMP 01/05/25 04:28 Sodium 149 H Potassium 4.4 Chloride 112.0 H Carbon Dioxide 27 BUN 40 H Creatinine 1.3 Glucose 261 H Calcium 14.7 H* Liver Function 01/05/25 Range/Units 04:28 Total Bilirubin 0.55 (0.0-1.0) mg/dL AST 230 H (15-37) U/L ALT 46 (30-65) U/L Alkaline Phosphatase 204 H (50-136) U/L Albumin 2.5 L (3.4-5.0) g/dL Urine 01/02/25 13:53 Urine Color Yellow Urine Appearance Clear Ur Specific [place] 1.025 Urine Protein Negative Urine Glucose (UA) Trace Progress Note: A&P Assessment and Plan (1) AMS (altered mental status): Assessment and Plan: 1. Currently a full code; Advanced Care Planning 2. NPO due to decreased LOC 3. Add Lorazepam 1mg IV Q6H 4. Continue Morphine Qualifiers: Altered mental status type: coma Coma depth: Kwasi coma 3-8 Coma timin hours or more after hospital admission Qualified Code(s): R40.2434 - [place] coma scale score 3-8, 24 hours or more after hospital admission (2) Lung mass: (3) Adrenal mass: (4) Lactic acidosis: (5) Hypercalcemia of malignancy: (6) Hypoalbuminemia due to protein-calorie malnutrition: (7) D-dimer, elevated: (8) HTN (hypertension): Assessment and Plan: 1. Vital signs Q4H 2. Hold PO meds due to decreased LOC (9) Diabetes: Assessment and Plan: 1. AccuCheck ACHS (10) COPD (chronic obstructive pulmonary disease): (11) Port-A-Cath in place: (12) Spinal cord stimulator status: (13) Tachycardia: Assessment and Plan: 1. Continuous cardiac monitoring 2. Vital signs Q4H 3. Change DuoNebs to Xopenex 4. Add Lorazepam 1mg IV Q6H 5. Continue Morphine Fall Risk Details Salas Fall Scale Risk Level: High Fall Risk Current Medications: Current Medications Albuterol Sulfate (Ipratropium/Albuterol Sulfate 3 Ml Ampul.Neb) 3 ml INH RQ4 [facility] Last Admin: 01/05/25 12:04 Dose: 3 ml Aspirin (Aspirin 81 Mg Tablet.Dr) 81 mg PO DAILY [facility] Last Admin: 01/05/25 10:12 Dose: Not Given Budesonide (Budesonide 0.5 Mg/2 Ml Ampul.Neb) 0.5 mg INH RBID [facility] Last Admin: 01/05/25 07:39 Dose: 0.5 mg Celecoxib (Celecoxib 100 Mg Capsule) 400 mg PO DAILY [facility] Last Admin: 01/05/25 12:25 Dose: 400 mg Gabapentin (Gabapentin 400 Mg Capsule) 800 mg PO TID [facility] Last Admin: 01/05/25 12:25 Dose: 800 mg Sodium Chloride (Sodium Chloride) 1,000 mls @ 50 mls/hr IV CONT [facility] Last Admin: 01/05/25 13:35 Dose: 50 mls/hr Ceftriaxone Sodium 1 gm/ (Sodium Chloride) 50 mls @ 100 mls/hr IV DAILY [facility] Last Infusion: 01/05/25 11:12 Dose: Infused Acetaminophen (Acetaminophen 1000 Mg/100 Ml) 1,000 mg in 100 mls @ 400 mls/hr IV Q6H PRN PRN Reason: Pain or fever >100.5 while NPO Last Admin: 01/03/25 14:44 Dose: 400 mls/hr Insulin Human Regular (Insulin Regular, Human 100 Unit/Ml) 0 unit SUBQ ACHS PRN; Protocol PRN Reason: diabetes Lorazepam (Lorazepam 2 Mg/Ml Vial) 1 mg IVP Q6H PRN; Protocol PRN Reason: Agitation Magnesium Citrate (Magnesium Citrate 296 Ml Solution) 150 ml PO DAILY PRN PRN Reason: Constipation Metformin HCl (Metformin Hcl 500 Mg Tablet) 1,000 mg PO BID [facility] Last Admin: 01/05/25 10:13 Dose: Not Given Methylprednisolone Sodium Succinate (Methylprednisolone Sod Succ/Pf 40 Mg/Ml Vial) 40 mg INJ Q8H [facility] Last Admin: 01/05/25 13:34 Dose: 40 mg Metoprolol Tartrate (Metoprolol Tartrate 50 Mg Tablet) 25 mg PO BID [facility] Last Admin: 01/05/25 12:26 Dose: 25 mg Morphine Sulfate (Morphine Sulfate 4 Mg/Ml Cartridge) 4 mg IVP Q6H PRN PRN Reason: Severe Pain SCALE 8-10 Last Admin: 01/05/25 12:09 Dose: 4 mg (Calcium Phos,Dibas- Vitamin D3 77-400 Mg -Unit Tablet) 1 tab PO DAILY [facility] Last Admin: 01/05/25 10:12 Dose: Not Given (Methocarbamol 750 (Mg Tablet)) 750 mg PO BID [facility] Last Admin: 01/05/25 10:13 Dose: Not Given (Pilocarpine Hcl 5 (Mg Tablet)) 5 mg PO TID [facility] Last Admin: 01/05/25 10:13 Dose: Not Given Ondansetron HCl (Ondansetron Hcl/Pf 4 Mg/2 Ml Vial) 4 mg IVP Q6H PRN PRN Reason: Nausea And Vomiting Last Admin: 01/05/25 12:09 Dose: 4 mg Quetiapine Fumarate (Quetiapine Fumarate 25 Mg Tablet) 50 mg PO BEDTIME [facility] Last Admin: 01/04/25 20:13 Dose: 50 mg Ropinirole HCl (Ropinirole Hcl 2 Mg Tablet) 4 mg PO BID [facility] Last Admin: 01/05/25 12:26 Dose: 4 mg Simvastatin (Simvastatin 10 Mg Tablet) 20 mg PO BEDTIME [facility] Last Admin: 01/04/25 20:13 Dose: 20 mg Terazosin HCl (Terazosin Hcl 2 Mg Capsule) 8 mg PO DAILY [facility] Last Admin: 01/05/25 10:14 Dose: Not Given Thiamine Mononitrate (Thiamine Mononitrate (Vit B1) 100 Mg Tablet) 100 mg PO DAILY [facility] Last Admin: 01/05/25 10:14 Dose: Not Given Time Spent With Patient Time: Total time spent is greater than 50% in coordination of care (as documented) at patient's floor/unit and/or counseling patient: 40 minutes Advanced care planning: I discussed with patient's spouse and son Emmanuel the advanced state of patient's disease process and prognosis. I initiated a voluntary advanced care planning as part of the care trajectory. Discussed patients code status, options for hospice care due to patient's advanced disease process and decreased level of consciousness. Family would like patient to remain a full code at this time, but are open to speaking to different hospice companies to explore options. Time with patient: greater than 35 minutes
[2025-01-06 05:26] LABS: Basophils #(Absolute) Auto 0.0 (0.0-0.1); Basophils%(Percent) Auto 0.2 (0.0-1.3); Eosinophils#(Absolute)Auto 0.0 (0.0-0.3); Eosinophils%(Percent) Auto 0.0 % (0.0-4.0); Granulocytes % - Auto 93.0 % (49.1-73.1); Granulocytes#(Absolute)- Auto 11.6 (2.0-6.2); Hematocrit 48.4 % (41.3-50.1); Mean Corpuscular Volume 90.5 fl (81.9-96.5); Monocytes #(Absolute)- Auto 0.5 (0.2-0.8); Monocytes %(Percent)- Auto 4.1 % (4.5-10.7); Platelet Count 325 K/uL (142-355); White Blood Count 12.5 K/uL (3.7-9.6)
[2025-01-06 06:17] LABS: Carbon Dioxide 28.0 mmol/L (21-32); Glucose 245.0 mg/dL (70-110); Potassium 3.7 mmol/L (3.6-5.2); Sodium 156.0 mmol/L (136-145)
[2025-01-06] MEDS: LORazepam 2 MG/ML VIAL ONE (09:35)
[2025-01-06] MEDS: LORazepam 2 MG/ML VIAL IVP PRN ×2 (09:35→14:46)
[2025-01-06] MEDS: SCOPOLAMINE 1 EACH PATCH.TD.3 TD SCH (12:32)
[2025-01-06] MEDS: MORPHINE SULFATE 2 MG/ML CARTRIDGE IV PRN (12:32)
[2025-01-06] MEDS ORDERED: PROMETHAZINE HCL 25 MG TABLET PO PRN (13:24)
--- NOTE | 2025-01-06 14:48 | Discharge Summary ---
DS: Providers Provider Date of admission: 01/02/25 20:16 Primary care physician: Melissa Youngblood MD Consults: 01/02/25 22:01 Consult to Speech Therapy Routine Comment: Consulting Provider: Reason for consultation: failed swallow screen Physician Instructions: failed swallow screen 01/03/25 15:19 Consult to Case Management Routine Comment: Consulting Provider: Karina Boothe Physician Instructions: Reason for consultation: Shelter Placement Has provider been notified: No DS: Diagnosis Discharge Diagnosis (1) AMS (altered mental status): (2) Lung mass: (3) Adrenal mass: (4) Hypercalcemia of malignancy: (5) Hypoalbuminemia due to protein-calorie malnutrition: (6) D-dimer, elevated: (7) HTN (hypertension): (8) Diabetes: (9) COPD (chronic obstructive pulmonary disease): (10) Port-A-Cath in place: (11) Spinal cord stimulator status: (12) Tachycardia: Plan Discharge to hospice services, family accepting and agrees. DS: Summary Hospital Course Hospital Course: Mr. José Antonio Benites is a 59 year old male who presented to the ER on 01/02/25 for increased confusion. Patient has metastatic lung cancer and had a liver biopsy the day prior to arrival. He has been seen in the ER 4 times in the past month with 3 of the visits being in the past week. Patient's status has been declining rapidly over the past week as patients appetite and ability to care for himself has declined. He has also had increased work of breathing with congestion. He was admitted for further evaluation and treatment. Over the course of the hospitalization, patient has continued to decline. He has been bedbound since arrival and has not had any PO intake over the past 24 hours. Patient appears to be transitioning as evidenced by obtunded presentation, decreased intake, increased heart rate, changes in breathing patterns with increased congestion, and restlessness. Patient received supportive management including IV hydration, IV Lorazepam and Morphine, IV antibiotics, IV steroids, nebulizer treatments, supplemental oxygen at 2 liters via NC, and scopolamine patch for increased secretions. I have discussed with patient's spouse and son Emmanuel the advanced state of patient's disease process and prognosis. I initiated a voluntary advanced care planning as part of the care trajectory. Discussed patients code status, options for hospice care due to patient's advanced disease process and decreased level of consciousness. Spouse and children are accepting of patient's advanced disease process and poor prognosis. They are accepting of hospice services and patient will be discharged to hospice services. Status at Discharge Functional status at discharge: bed bound Overall status at discharge: patient is not back to baseline Time Spent with Patient Time attestation: Total time spent providing and/or coordinating discharge services: 35 minutes spent on this discharge, face to face time, answering questions, and arranging care. Time spent: greater than 30 minutes Exam Exam: Obtunded, responding only with moaning with deep sternal rub. No spontaneous eye opening noted upon today's exam. Remains restless with uncoordinated arm movements. Continues to transition, end of life in his disease process. Constitutional: abnormal general appearance (chronically ill), distress noted (moderate) and (respiratory) and level of alertness abnormal (obtunded) Vital Signs - 24 hr 01/05/25 15:24 01/05/25 16:00 01/05/25 20:00 Temperature 97 F L 97.9 F Pulse Rate Pulse Rate [Bilate ral Brachial] 83 Pulse Rate [Right] 110 H Respiratory Rate 17 Blood Pressure Blood Pressure [Ri ght Arm] 140/77 126/68 Pulse Oximetry 94 L 92 L 89 L Oxygen Delivery Me thod Nasal Cannula Nasal Cannula Oxygen Flow Rate 3 2.5 01/05/25 20:06 01/05/25 20:10 01/05/25 20:10 Temperature 97.9 F Pulse Rate Pulse Rate [Bilate ral Brachial] 83 Pulse Rate [Right] Respiratory Rate 18 Blood Pressure Blood Pressure [Ri ght Arm] 126/68 Pulse Oximetry 89 L 92 L 92 L Oxygen Delivery Me thod Nasal Cannula Nasal Cannula Oxygen Flow Rate 3 01/05/25 20:49 01/06/25 00:00 01/06/25 00:35 Temperature 97.8 F Pulse Rate 83 Pulse Rate [Bilate ral Brachial] 72 Pulse Rate [Right] Respiratory Rate 20 Blood Pressure 126/68 Blood Pressure [Ri ght Arm] 101/65 Pulse Oximetry 97 97 Oxygen Delivery Me thod Nasal Cannula Oxygen Flow Rate 2.5 01/06/25 04:00 01/06/25 08:00 01/06/25 08:45 Temperature 97.8 F 98.1 F Pulse Rate Pulse Rate [Bilate ral Brachial] 103 H 114 H Pulse Rate [Right] Respiratory Rate 20 19 Blood Pressure Blood Pressure [Ri ght Arm] 127/76 142/88 Pulse Oximetry 90 L 91 L 96 Oxygen Delivery Me thod Nasal Cannula Nasal Cannula Oxygen Flow Rate 2.5 3 01/06/25 11:36 01/06/25 12:00 Temperature 98.2 F Pulse Rate Pulse Rate [Bilate ral Brachial] 118 H Pulse Rate [Right] Respiratory Rate 18 Blood Pressure Blood Pressure [Ri ght Arm] 145/81 Pulse Oximetry 89 L 92 L Oxygen Delivery Me thod Nasal Cannula Oxygen Flow Rate HENMT: normocephalic, head/scalp atraumatic, external ears normal and oral mucous membranes abnormal (dry) Eyes: Deferred Neck/C-Spine: trachea midline Chest: inspection of chest normal and palpation of chest normal Respiratory: breath sounds unequal, abnormal respiratory effort (labored), auscultation abnormal, wheezing noted (scattered wheezes), rales noted (throughout) and use of accessory muscles noted Cardiovascular: heart rate abnormal (tachycardic), no JVD and peripheral pulses 2+ throughout Gastrointestinal: distended and ascites noted Genitourinary: Deferred Back/Pelvis: Deferred Extremities: normal to inspection and normal to palpation Neurology: movement abnormality noted (myoclonus), speech abnormality noted and GCS calculation - Eye opening: To pressure Verbal response: Sounds Motor response: None Kwasi Coma Scale total score: 5 Psychiatry: Mental Status Exam documented within this Exam's Psych section mental status abnormal (obtunded), orientation abnormal, thought process normal, cooperative and psychomotor abnormality noted (restless) Skin: skin color abnormal Reports (flushed), jaundice noted and alopecia noted DS: Data Data Completed and Pending Labs on day of discharge: Labs from last 24 hours 01/06/25 04:38 WBC 12.5 H RBC 5.3 Hgb 15.7 Hct 48.4 MCV 90.5 MCH 29.4 MCHC 32.5 L RDW 16.8 H Plt Count 325 MPV 8.4 Gran % 93.0 H Lymph % (Auto) 2.7 L Foster % (Auto) 4.1 L Eos % (Auto) 0.0 Baso % (Auto) 0.2 Lymph # (Auto) 0.3 L [place] # (Auto) 0.5 Eos # (Auto) 0.0 Baso # (Auto) 0.0 Absolute Gran (auto) 11.6 H Sodium 156 H Potassium 3.7 Chloride 117.0 H Carbon Dioxide 28 Anion Gap 11.0 BUN 49 H Creatinine 1.4 H Estimated GFR 57.2 Glucose 245 H Calcium 13.4 H* Total Bilirubin 0.45 AST 199 H ALT 52 Alkaline Phosphatase 305 H Total Protein 6.9 Albumin 2.5 L Preliminary micro results at discharge 01/02/25 13:15 Blood Culture - Preliminary Blood - Venous Draw (Peripheral) 01/02/25 13:00 Blood Culture - Preliminary Blood - Venous Draw (Peripheral) Discharge Plan Discharge Disposition: Hospice Care Condition: Stable Discharge Medications: Discontinued doxazosin 8 mg tablet 8 mg PO DAILY Patient Comments: TAKE ONE TABLET BY MOUTH DAILY gabapentin 400 mg capsule 800 mg PO TID Patient Comments: TAKE TWO CAPSULES BY MOUTH THREE TIMES DAILY metformin 1,000 mg tablet 1,000 mg PO BID Patient Comments: TAKE ONE TABLET BY MOUTH TWICE DAILY WITH MEALS methocarbamol 750 mg tablet 750 mg PO BID celecoxib 400 mg capsule 400 mg PO DAILY Patient Comments: TAKE ONE CAPSULE BY MOUTH DAILY WITH FOOD simvastatin 20 mg tablet 20 mg PO BEDTIME Patient Comments: TAKE ONE TABLET BY MOUTH AT BEDTIME aspirin 81 mg tablet,delayed release (DR/EC) 81 mg PO DAILY Patient Comments: TAKE ONE TABLET BY MOUTH DAILY pilocarpine HCl 5 mg tablet 5 mg PO TID Patient Comments: TAKE ONE TABLET BY MOUTH THREE TIMES DAILY NEEDED quetiapine 25 mg tablet 50 mg PO BEDTIME Patient Comments: TAKE TWO TABLETS BY MOUTH DAILY ropinirole 4 mg tablet 4 mg PO BID thiamine HCl (vitamin B1) 100 mg capsule 100 mg PO DAILY calcium phos,dibas-vitamin D3 77-400 mg-unit tablet 1 tab PO DAILY ferrous sulfate [FeroSul] 325 mg (65 mg iron) tablet 325 mg PO DAILY Patient Comments: TAKE ONE TABLET BY MOUTH DAILY metformin 500 mg tablet 500 mg PO DAILY Patient Comments: TAKE ONE TABLET BY MOUTH DAILY with 1000mg dose potassium chloride 10 mEq tablet extended release 10 meq PO DAILY Patient Comments: TAKE ONE TABLET BY MOUTH DAILY WITH FOOD NEEDED spironolactone 25 mg tablet 25 mg PO TID Patient Comments: TAKE ONE TABLET BY MOUTH THREE TIMES DAILY folic acid 1 mg tablet 1 mg PO DAILY Patient Comments: TAKE ONE TABLET BY MOUTH DAILY furosemide 20 mg tablet 20 mg PO Q12H Patient Comments: TAKE ONE TABLET BY MOUTH TWICE DAILY NEEDED Jardiance 25 mg tablet 25 mg PO DAILY Patient Comments: TAKE ONE TABLET BY MOUTH DAILY magnesium citrate Solution 150 ml PO DAILY PRN (Reason: constipation) Qty: 296 2RF Discharge Orders: Discharge Order (Routine); Ordered 01/06/25 Ordered By: Sydney Bradford Activity Detail: as per hospice Diet Detail: NPO recommended by speech therapy Interventions: Discharge Assessment Last Done: 01/06/25 16:27 MED/SURG & ICU Observation Charge Sheet Last Done: 01/06/25 16:29 Print Language: Swedish Forms: Portal/Health Info Access Inst Follow-Ups: Melissa Youngblood MD [Primary Care Provider] Discharge Date/Time: 01/06/25 16:29
[2025-01-06 16:04] VITALS: BP 145/85; PULSE 50; RESP 20; TEMP 98.4
[2025-01-07] MEDS ORDERED: LORazepam 2 MG/ML VIAL ONE (00:33)
== END 2025-01-06 16:29 | disposition hospice, home (50) | DRG 181 ==
LOC: MS 12:34 → ED 12:34 → OBSVTOIN 20:16 → MS 21:30
PROVIDERS: ADMIT Nurse Practitioner Family; ATTEND Nurse Practitioner Family
DX: R41.82 Altered mental status, unspecified; C78.00 Secondary malignant neoplasm of unspecified lung; N40.0 Benign prostatic hyperplasia without lower urinary tract symptoms; Z79.84 Long term (current) use of oral hypoglycemic drugs; Z79.82 Long term (current) use of aspirin; Z96.89 Presence of other specified functional implants; Z87.891 Personal history of nicotine dependence; Z68.27 Body mass index [BMI] 27.0-27.9, adult; Z51.5 Encounter for palliative care; E46 Unspecified protein-calorie malnutrition; J44.9 Chronic obstructive pulmonary disease, unspecified; Z79.899 Other long term (current) drug therapy; E87.20 Acidosis, unspecified; E83.52 Hypercalcemia; R00.0 Tachycardia, unspecified; R79.89 Other specified abnormal findings of blood chemistry; Z74.01 Bed confinement status; I10 Essential (primary) hypertension; Z91.81 History of falling; E11.9 Type 2 diabetes mellitus without complications; Z95.828 Presence of other vascular implants and grafts; E88.09 Other disorders of plasma-protein metabolism, not elsewhere classified; E27.8 Other specified disorders of adrenal gland